=== PATIENT | male | born 1945 | race Caucasian/White ===

== ENCOUNTER 2020-03-01 14:05 | Inpatient (IN) | payer OTHER ==
[~2020-03-01] VITALS: Ht 185.4 cm; Wt 99.5 kg
[~2020-03-01 14:05] MED LIST: ALLOPURINOL300 MG PO; AMLODIPINE5 MG PO; ASPIRIN81 M1 PO; CLINDAMYCIN150 MG PO; CRESTOR20 M1 PO; DARVOCET N 1001 TAB PO; DOXAZOSIN2 MG PO; DOXAZOSIN4 MG PO; FISH OIL DR 1,1 EACH PO; FOLIC ACID0.8 MG PO; HYDROCHLOROTHIA25 M1 PO; IMDUR60 MG PO; LEVOFLOXACIN500 MG PO; LISINOPRIL40 MG PO; METOPROLOL SR50 MG PO; METOPROLOL TART50 M1 PO; MUCOMIST 26 GM/30 ML PO; NAPROSYN EC375 MG PO; NAPROSYN375 MG PO; NORCO 10-325 T1 EACH PO; Oxycodone/Apap1 TA1 PO; PLAVIX75 M1 PO; PLAVIX75 MG PO; PRILOSEC10 MG PO; ROBITUSSIN AC 110 ML PO; VICODIN 5/500 505 MG PO; VITAMIN D32000 UNIT PO; VYTORIN 10 MG-21 TA1 PO; VYTORIN PO
[2020-03-01 15:04] VITALS: BP 196/84
[2020-03-01 15:31] LABS: BASO # 0.1 10*3/uL (0.0-0.1); BASO % 0.7 % (0.0-1.0); EOS # 0.3 10*3/uL (0.0-0.4); EOS % 3.3 % (1.0-4.0); HEMATOCRIT 46.7 % (42.0-52.0); LYMPH # 1.1 10*3/uL (1.3-4.4); MEAN CELL VOLUME 91.2 fl (80.0-94.0); MEAN CORPUSCULAR HGB 28.7 pg (27.0-31.0); MEAN CORPUSCULAR HGB CONC 31.5 g/dl (33.0-37.0); MONO # 0.7 10*3/uL (0.1-1.0); MONO % 8.7 % (3.0-9.0); NEUT # 5.4 10*3/uL (2.3-7.9); NEUT % 71.9 % (47.0-73.0); PLATELET COUNT AUTOMATED 208 10*3/uL (130-400); RED BLOOD COUNT 5.12 10*6/uL (4.50-5.90); RED CELL DISTRI WIDTH 13.2 % (0-14.5); WHITE BLOOD COUNT 7.5 10*3/uL (4.8-10.8)
[2020-03-01 15:58] LABS: ALBUMIN 3.4 gm/dl (3.1-4.5); CREATININE 1.48 mg/dL (0.70-1.30); POTASSIUM 4.2 mmol/L (3.5-5.1); TOTAL PROTEIN 7.5 gm/dL (6.4-8.2)
[2020-03-01 16:00] LABS: TROPONIN I 0.064 ng/ml (<0.045)
--- NOTE | 2020-03-01 18:45 | NUR ---
REPORT GIVEN TO LINH KAMARA. PATIENT TAKEN TO FLOOR BY MARS KAMARA.
[2020-03-01 19:00] VITALS: BP 172/65
--- NOTE | 2020-03-01 19:00 | NUR ---
Time: 1899 A 75 year old MALE admitted to 5E under services of JOSIE TATE DO. Pt. arrived via stretcher from ER. Chief complaint: SENT FROM [facility] FOR LLE WOUND. MAKENZIE BENNETT
--- NOTE | 2020-03-01 20:58 | NUR ---
STATES TO CALL [place] FOR MED LIST. PT SEES [facility].
[2020-03-02] VITALS (7 sets, daily range): BP systolic 154–224; BP diastolic 50–82
--- NOTE | 2020-03-02 00:06 | NUR ---
DR FIELD NOTIFIED OF PT BP 170/78
[2020-03-02 06:42] LABS: BASO % 0.5 % (0.0-1.0); EOS # 0.3 10*3/uL (0.0-0.4); EOS % 3.7 % (1.0-4.0); HEMATOCRIT 44.1 % (42.0-52.0); LYMPH # 1.1 10*3/uL (1.3-4.4); LYMPH % 14.4 % (27.0-41.0); MEAN CELL VOLUME 90.6 fl (80.0-94.0); MEAN CORPUSCULAR HGB 29.6 pg (27.0-31.0); MEAN CORPUSCULAR HGB CONC 32.7 g/dl (33.0-37.0); MEAN PLATELET VOLUME 10.3 fl (9.6-12.3); MONO # 0.8 10*3/uL (0.1-1.0); MONO % 10.2 % (3.0-9.0); NEUT # 5.4 10*3/uL (2.3-7.9); NEUT % 70.8 % (47.0-73.0); PLATELET COUNT AUTOMATED 181 10*3/uL (130-400); RED BLOOD COUNT 4.87 10*6/uL (4.50-5.90); RED CELL DISTRI WIDTH 13.2 % (0-14.5); WHITE BLOOD COUNT 7.7 10*3/uL (4.8-10.8)
--- NOTE | 2020-03-02 06:58 | NUR ---
PODIATRY RESIDENT NOTIFIED OF NEW CONSULT STATES SHE WILL SEE PT LATER TODAY NEW IMAGING ORDERS REC'D.
[2020-03-02 07:10] LABS: ALBUMIN 3.1 gm/dl (3.1-4.5); CREATININE 1.41 mg/dL (0.70-1.30); POTASSIUM 3.8 mmol/L (3.5-5.1)
[2020-03-02 07:18] LABS: FREE T4 1.15 ng/dl (0.76-1.46); THYROID STIM HORMONE (HS) 1.88 uIU/ml (0.358-4.75); TOTAL PROTEIN 6.9 gm/dL (6.4-8.2)
[2020-03-02 07:31] LABS: VITAMIN D, 25-HYDROXY 34.5 ng/mL (30-100)
--- NOTE | 2020-03-02 08:00 | NUR ---
Neurological: awake,alert,oriented Respiratory: easy, regular,no distress Breath sounds: clear Cough: none Cardiovascular: no problem Gastrointestinal: soft Genito/Urinary: no problem Musculoskeketal: amputee (lower extremity) MARS ARREOLA
--- NOTE | 2020-03-02 09:09 | NUR ---
This nurse went to evaluate patient for skin impairments at this time patient is off the floor for testing at this time. This nurse made Jodie KAMARA the nurse caring for patient aware to notify this nurse upon patient's return to the floor.
--- NOTE | 2020-03-02 11:47 | NUR ---
This nurse along with Jodie KAMARA went to evaluate patient for skin impairments. Patients states that podiatry was just in and changed his dressings and he doesn't want these dressings removed at this time.
--- NOTE | 2020-03-02 12:03 | NUR ---
Mobility Developer in to talk to patient. Patient states lives at HOME with . There are 10 steps in the home. Physician: GOES TO [place] [facility]: [facility] Home health services: [facility] 2 HURS A DAY 7 DAYS A WEEK Patient's level of ADLs: MINIMAL ASSIST Patient has working utilities: YES DME: MOTORIZED WHEELCHAIR Follow-up physician's appointment after d/c: WILL BE MADE BY HOSPITALIST NURSE DIRECTOR ON DISCHARGE Does patient want to access PORTAL?: NO Discharge plan PT LIVES AT HOME WITH . PT HAS A MOTORIZED WHEELCHAIR. STATES HE HAS [facility]WAYS [facility] 2 HOURS A DAY 7 DAYS A WEEK. DENIES ANY OTHER NEEDS AT HOME AT THIS TIME. WILL CONITNUE TO FOLLOW. STATES HE WILL HAVE A RIDE HOME ON DISCHARGE.. HOWIE COLLIER
--- NOTE | 2020-03-02 14:25 | NUR ---
PHYSICAL THERAPY Attempted to see pt earlier in Am awaiting aterial ultrasound result. Spoke with nurse Annetta study showing thrombus areas of LLE and currently off the floor for CT pelvis and has LLE foot and Tib/Fib xrays pending. Will follow pending MD assessment reg thrombus and LLE xray results and medically appropriate. Denisa Allison PT
--- NOTE | 2020-03-02 14:25 | NUR ---
Patient had an ultrasound this am. OT waiting result in the am. Currently, nursing reports that testing shows thrombus in areas of LLE. Patient is not out of his room getting a CT scan with x-rays pending for LLE. OTR will attempt at a later date after further orders from . Thank you. Bertha Faria OTR/Driss
--- NOTE | 2020-03-02 16:45 | NUR ---
NOTIFIED DR SHELL OF CONSULT. RECEIVED ORDER FOR HEPARIN DRIP. STAT APTT ORDERED WAITING RESULT.
--- NOTE | 2020-03-02 19:00 | NUR ---
NOTIFIED HOSPITALIST OF HIGH BP. RECEIVED N.O TO RESUME HOME MEDS VERIFIED WITH [facility] AND . ONE TIME DOSE OF LABETATOL. Q 1 HR BP.
--- NOTE | 2020-03-02 19:50 | NUR ---
CHECKED IV HEPARIN DRIP INFUSING AT 39.2ML/HR IV TURNED OFF INFUSION RATE SHOULD HAVE BEEN 17.9ML/HR WEIGHT WHEN PROGRAMMED WAS IN POUNDS NOT KILOGRAMS. IV started right forearm with #22 angiocath after 1ST attempts. The IV site was prepped with Chloraprep. Heparin lock attached. Sterile dressing applied. Patient tolerated precedure well. Procedure performed according to [facility] policy & procedure. IV ANTIBIOTIC STARTED AFTER 2ND IV SITE STARTED. NARINDER LOVE J
--- NOTE | 2020-03-02 20:45 | NUR ---
CALLED PHARMACY AND NOTIFIED THEM OF HERPARIN AND RECOMMENDATION WAS TO STOP INFUSION FOR COUPLE HOURS THEN RESTART AT CORRECT RATE AND DO PTT 6 HOURS AFTER RESTART IV INFUSION PER PHARMACIST.
--- NOTE | 2020-03-02 20:57 | NUR ---
SPOKE WITH DR. LOVE AFTER SECOND ATTEMPT AT CONTACTING RESIDENT AND NOTIFIED HIM OF WHAT HAPPEND AND OF THE RECOMMENDATION OF PHARAMCIST. PER DR. LOVE THIS IS OKAY.
--- NOTE | 2020-03-02 22:50 | NUR ---
24 HR chart check completed.
--- NOTE | 2020-03-02 23:49 | NUR ---
CALLED DR. LOVE AND NOTIFIED HIM THAT PATIENT HAD AN ORDER FOR Q1H BP AND BP HAVE BEEN SYSTOLIC 150'S OVER 60'S-70'S DIASTOLIC. DR. LOVE D/C ORDER TO DO BP PROTOCOL.
[2020-03-03] VITALS: BP 157/66
[2020-03-03 04:12] LABS: BASO # 0.1 10*3/uL (0.0-0.1); BASO % 0.8 % (0.0-1.0); EOS # 0.3 10*3/uL (0.0-0.4); EOS % 4.3 % (1.0-4.0); HEMATOCRIT 44.3 % (42.0-52.0); LYMPH # 1.3 10*3/uL (1.3-4.4); MEAN CELL VOLUME 89.5 fl (80.0-94.0); MEAN CORPUSCULAR HGB 28.9 pg (27.0-31.0); MEAN CORPUSCULAR HGB CONC 32.3 g/dl (33.0-37.0); MEAN PLATELET VOLUME 9.5 fl (9.6-12.3); MONO # 0.8 10*3/uL (0.1-1.0); MONO % 10.2 % (3.0-9.0); NEUT % 67.3 % (47.0-73.0); PLATELET COUNT AUTOMATED 183 10*3/uL (130-400); RED BLOOD COUNT 4.95 10*6/uL (4.50-5.90); RED CELL DISTRI WIDTH 13.2 % (0-14.5); WHITE BLOOD COUNT 7.5 10*3/uL (4.8-10.8)
[2020-03-03 04:26] LABS: CREATININE 1.51 mg/dL (0.70-1.30); POTASSIUM 3.6 mmol/L (3.5-5.1); TOTAL PROTEIN 6.7 gm/dL (6.4-8.2)
--- NOTE | 2020-03-03 04:38 | NUR ---
NOTIFIED DR. ELDRIDGE OF CRITICAL PTT AND FOLLOWING HEPARIN PROTOCOL OF HOLDING HEPARIN FOR 1 HOUR AND REDUCING BY 3 UNITS TO MAKE 15 UNITS/KG/HR FROM 18 UNITS/KG/HR, THEN GETTING PTT 6HRS AFTER RESTARTING. DR. ELDRIDGE AGREED.
[2020-03-03 08:00] VITALS: BP 148/90
--- NOTE | 2020-03-03 08:00 | NUR ---
Neurological: awake,alert,oriented Respiratory: diminished bilaterally Breath sounds: clear Cough: none Cardiovascular: no problem Gastrointestinal: soft Genito/Urinary: incontinent Musculoskeketal: amputee (lower extremity) NO S/S OF BLEEDING. HEPARIN DRIP INFUSING WITHOUT DIFFICULTY. MARS ARREOLA
--- NOTE | 2020-03-03 11:00 | NUR ---
PHYSICAL THERAPY PT EVAL COMPLETED TODAY ON LEVEL 5: FULL EVAL TO FOLLOW. RECOMMEND PT WHILE HERE TO ADDRESS STRENGTH AND TRANSFERS. PT EVAL IS MODERATE COMPLEXITY: [id number]. HE LIVES AT HOME WITH WITH [facility] 2 HOURS A DAY AND 7 DAYS A WEEK AND D/C PLAN IS TO RETURN THERE. THANK YOU FOR REFERRAL PAYAL MARTIN PT
[2020-03-03 12:00] VITALS: BP 156/80
--- NOTE | 2020-03-03 12:23 | NUR ---
APTT 89.4 PER HEPARIN PROTOCOL TURNED OFF FOR 1 HR. THEN DECREASE BY 3. REPEAT APTT AT 1620. NO S/S OF BLEEDING NOTED.
--- NOTE | 2020-03-03 14:00 | NUR ---
ASKED THIS NURSE TO CALL AND SEE WHEN HE WAS COMING TO SEE THIS PATIENT. THIS NURSE SPOKE TO DR. SHELL AND HE STATED HE WILL BE IN ON THURSDAY. CALL AND NOTIFIED
[2020-03-03 16:00] VITALS: BP 165/55
[2020-03-03 20:00] VITALS: BP 195/70
[2020-03-03 21:00] VITALS: BP 170/68
[2020-03-04] VITALS: BP 168/65
--- NOTE | 2020-03-04 02:59 | NUR ---
AWAKE ALERT. VOIDED 200CC [place] COLORED URINE.
[2020-03-04 08:00] VITALS: BP 190/76; BP 203/52
[2020-03-04 12:00] VITALS: BP 174/80; BP 180/54
--- NOTE | 2020-03-04 13:20 | NUR ---
IN ROOM TO SEE PATIENT. DRESSING CHANGED AT THIS TIME. PATIENT TOLERATED WELL. DISCUSSED TRANSFER TO [place] TOMORROW.
[2020-03-04] MEDS ORDERED: AMLODIPINE BESYL5 MG PO (13:36)
[2020-03-04 16:00] VITALS: BP 154/46
--- NOTE | 2020-03-04 19:39 | NUR ---
SPOKE WITH DR BRENNAN REGARDING DISCHARGE ORDER
[2020-03-04 20:00] VITALS: BP 175/58
--- NOTE | 2020-03-04 20:05 | NUR ---
PATIENT RESTING IN BED WITH NO NEEDS MADE. ASSISTED WITH PHONE TO CALL . FLUIDS INFUSING PER ORDER. BED ALARM ON, BED IN LOW POSITION, CALL LIGHT IN REACH
--- NOTE | 2020-03-04 21:04 | NUR ---
DR BRENNAN AWARE OF BLOOD PRESSURE AND HEART RATE. ORDER TAKEN TO GIVE 50 OF LOPRESSOR TONIGHT INSTEAD OF 75
[2020-03-05] VITALS: BP 175/59
--- NOTE | 2020-03-05 02:55 | NUR ---
24 HR chart check completed.
--- NOTE | 2020-03-05 04:30 | NUR ---
PATIENT REFUSING DISCHARGE WOUND PHOTOS AT THIS TIME OF MORNING.
--- NOTE | 2020-03-05 05:24 | NUR ---
PATIENT TAKEN WITH [facility] FOR TRANSFER TO [facility]. BELONGINGS SENT WITH PATIENT. PATIENT ALERT AND ORIENTED
--- NOTE | 2020-03-05 05:49 | NUR ---
REPORT GIVEN TO MATILDE AT [facility] DES[facility]. SHE REQUESTS HOME MED REC BE FAXED TO [phone]
--- NOTE | 2020-03-06 07:42 | NUR ---
PHYSICAL THERAPY CO-SIGN I approve of the Physical Therapy notes written above. Denisa Allison PT
== END 2020-03-05 06:33 | disposition short-term general hospital (02) | DRG 603 ==
LOC: ED 14:05 → 5E 17:27 → EDHOLD 17:27 → 5E 18:25
PROVIDERS: Emergency Medicine; Internal Medicine; ADMIT Internal Medicine; ATTEND Internal Medicine
DX: L03.116 Cellulitis of left lower limb (principal); E44.0 Moderate protein-calorie malnutrition; L97.929 Non-pressure chronic ulcer of unspecified part of left lower leg with unspecified severity; R73.9 Hyperglycemia, unspecified; N40.0 Benign prostatic hyperplasia without lower urinary tract symptoms; I70.202 Unspecified atherosclerosis of native arteries of extremities, left leg; I25.10 Atherosclerotic heart disease of native coronary artery without angina pectoris; I12.9 Hypertensive chronic kidney disease with stage 1 through stage 4 chronic kidney disease, or unspecified chronic kidney disease; N18.31 Chronic kidney disease, stage 3a; Z89.611 Acquired absence of right leg above knee; Z95.1 Presence of aortocoronary bypass graft; Z95.0 Presence of cardiac pacemaker; Z82.49 Family history of ischemic heart disease and other diseases of the circulatory system; Z80.3 Family history of malignant neoplasm of breast; Z83.3 Family history of diabetes mellitus; Z80.0 Family history of malignant neoplasm of digestive organs; Z89.422 Acquired absence of other left toe(s); Z79.899 Other long term (current) drug therapy; Z79.82 Long term (current) use of aspirin; Z79.02 Long term (current) use of antithrombotics/antiplatelets; Z68.28 Body mass index [BMI] 28.0-28.9, adult

== ENCOUNTER 2021-12-11 16:01 | Emergency (ER) | payer OTHER ==
[~2021-12-11 16:01] MED LIST changes: +AMLODIPINE BESYL5 MG PO
[2021-12-11 16:58] LABS: BASO % 0.6 % (0.0-1.0); EOS # 0.1 10*3/uL (0.0-0.4); EOS % 1.4 % (1.0-4.0); HEMATOCRIT 43.8 % (42.0-52.0); LYMPH # 0.9 10*3/uL (1.3-4.4); LYMPH % 12.9 % (27.0-41.0); MEAN CELL VOLUME 88.8 fl (80.0-94.0); MEAN CORPUSCULAR HGB 29.2 pg (27.0-31.0); MEAN CORPUSCULAR HGB CONC 32.9 g/dl (33.0-37.0); MEAN PLATELET VOLUME 9.6 fl (9.6-12.3); MONO # 0.6 10*3/uL (0.1-1.0); NEUT # 5.4 10*3/uL (2.3-7.9); NEUT % 75.8 % (47.0-73.0); PLATELET COUNT AUTOMATED 200 10*3/uL (130-400); RED BLOOD COUNT 4.93 10*6/uL (4.50-5.90); RED CELL DISTRI WIDTH 13.2 % (0-14.5); WHITE BLOOD COUNT 7.1 10*3/uL (4.8-10.8)
[2021-12-11 17:14] LABS: CREATININE 1.42 mg/dL (0.70-1.30); POTASSIUM 3.5 mmol/L (3.5-5.1); TOTAL PROTEIN 6.6 gm/dL (6.4-8.2)
[2021-12-11 19:10] VITALS: BP 142/78
[2021-12-11 19:13] LABS: BILIRUBIN Negative (Negative); BLOOD Negative (Negative); CLARITY Clear (Clear); COLOR Dark Yellow (Yellow); GLUCOSE Negative (Negative); KETONE Trace (Negative); LEUKO ESTERASE Negative (Negative); NITRITE Negative (Negative)
[2021-12-11 19:41] LABS: BACTERIA 1+; EPITHELIAL CELLS 0-2; WBC 0-2 wbc/hpf (0-5)
== END 2021-12-11 20:31 | disposition home or self-care (01) ==
LOC: ED 16:01
PROVIDERS: Physician Assistant
DX: R10.12 Left upper quadrant pain (principal); Z98.890 Other specified postprocedural states; Z79.899 Other long term (current) drug therapy; Z79.82 Long term (current) use of aspirin

== ENCOUNTER 2022-02-05 14:05 | Inpatient (IN) | payer OTHER ==
[~2022-02-05] VITALS: Ht 185.4 cm; Wt 81.2 kg
[2022-02-05 14:10] VITALS: BP 129/52
[2022-02-05 14:44] LABS: BASO # 0.1 10*3/uL (0.0-0.1); BASO % 0.9 % (0.0-1.0); EOS # 0.2 10*3/uL (0.0-0.4); EOS % 2.3 % (1.0-4.0); HEMATOCRIT 39.8 % (42.0-52.0); LYMPH # 1.6 10*3/uL (1.3-4.4); LYMPH % 24.3 % (27.0-41.0); MEAN CELL VOLUME 90.9 fl (80.0-94.0); MEAN CORPUSCULAR HGB 29.7 pg (27.0-31.0); MEAN CORPUSCULAR HGB CONC 32.7 g/dl (33.0-37.0); MEAN PLATELET VOLUME 9.8 fl (9.6-12.3); MONO # 0.7 10*3/uL (0.1-1.0); MONO % 10.1 % (3.0-9.0); NEUT % 61.8 % (47.0-73.0); PLATELET COUNT AUTOMATED 216 10*3/uL (130-400); RED BLOOD COUNT 4.38 10*6/uL (4.50-5.90); WHITE BLOOD COUNT 6.5 10*3/uL (4.8-10.8)
[2022-02-05 14:56] LABS: ACT PARTIAL THROMBO TIME 28.8 SECONDS (20.0-32.1); INTERNATIONAL NORM RATIO 1.1 (2.0-3.5)
[2022-02-05 15:03] LABS: BUN 10 mg/dl (7-24); CHLORIDE 110 mmol/L (98-107); CREATININE 1.29 mg/dL (0.70-1.30); LIPASE 45 U/L (73-393); POTASSIUM 3.9 mmol/L (3.5-5.1); SGOT/AST 17 IU/L (3-35); SGPT/ALT 19 U/L (12-78); SODIUM 143 mmol/L (136-145); TOTAL PROTEIN 6.2 gm/dL (6.4-8.2)
[2022-02-05 15:04] LABS: ALKALINE PHOSPHATASE 126 U/L (45-117)
[2022-02-05 16:48] VITALS: BP 172/71
[2022-02-05 18:00] VITALS: BP 154/67
[2022-02-05 20:40] VITALS: BP 156/58
[2022-02-05 22:01] LABS: BILIRUBIN Negative (Negative); BLOOD Negative (Negative); CLARITY Clear (Clear); COLOR Yellow (Yellow); GLUCOSE Negative (Negative); KETONE Negative (Negative); LEUKO ESTERASE Negative (Negative); NITRITE Negative (Negative); UROBILINOGEN 0.2 E.U./dl (0.0-1.0)
[2022-02-05 22:12] LABS: BACTERIA TRACE
[2022-02-05 23:48] VITALS: BP 151/71
[2022-02-06 00:40] VITALS: BP 170/82
[2022-02-06 04:53] VITALS: BP 156/66
[2022-02-06 06:07] LABS: ALKALINE PHOSPHATASE 118 U/L (45-117); BUN 11 mg/dl (7-24); CHLORIDE 107 mmol/L (98-107); CHOLESTEROL 113 mg/dL (<200); CREATININE 1.22 mg/dL (0.70-1.30); FREE T4 1.13 ng/dl (0.76-1.46); LDL CHOLESTEROL 47 mg/dL (9-159); POTASSIUM 3.1 mmol/L (3.5-5.1); SGOT/AST 15 IU/L (3-35); SGPT/ALT 18 U/L (12-78); SODIUM 145 mmol/L (136-145); TOTAL PROTEIN 6.4 gm/dL (6.4-8.2); TRIGLYCERIDES 212 mg/dl (<150)
[2022-02-06 06:09] LABS: BASO # 0.1 10*3/uL (0.0-0.1); BASO % 0.9 % (0.0-1.0); EOS # 0.2 10*3/uL (0.0-0.4); EOS % 2.9 % (1.0-4.0); LYMPH # 1.6 10*3/uL (1.3-4.4); LYMPH % 24.4 % (27.0-41.0); MEAN CELL VOLUME 91.1 fl (80.0-94.0); MEAN CORPUSCULAR HGB 29.6 pg (27.0-31.0); MEAN CORPUSCULAR HGB CONC 32.4 g/dl (33.0-37.0); MEAN PLATELET VOLUME 10.5 fl (9.6-12.3); MONO # 0.6 10*3/uL (0.1-1.0); MONO % 9.1 % (3.0-9.0); NEUT # 4.1 10*3/uL (2.3-7.9); NEUT % 61.9 % (47.0-73.0); PLATELET COUNT AUTOMATED 204 10*3/uL (130-400); RED CELL DISTRI WIDTH 13.1 % (0-14.5); WHITE BLOOD COUNT 6.6 10*3/uL (4.8-10.8)
[2022-02-06 07:48] LABS: VITAMIN D, 25-HYDROXY 61.1 ng/mL (30-100)
[2022-02-06 08:00] VITALS: BP 156/69
[2022-02-06] MEDS ORDERED: POTASSIUM CHLO20 ME4 PO (09:53)
[2022-02-06] MEDS ORDERED: PANTOPRAZOLE SO40 MG PO (09:54)
[2022-02-06] MEDS ORDERED: FLOMAX0.4 MG PO (09:54)
[2022-02-06] MEDS ORDERED: B12 ACTIVE1000 MCG PO (09:55)
[2022-02-06] MEDS ORDERED: LASIX20 MG PO (09:55)
[2022-02-06] MEDS ORDERED: LOPRESSOR25 MG PO (09:56)
[2022-02-06 12:00] VITALS: BP 153/85
[2022-02-06] MEDS ORDERED: GLIPIZIDE10 M2 PO (14:31)
[2022-02-06] MEDS ORDERED: EUCERIN, DERMA120 GM PO (14:36)
[2022-02-06 16:00] VITALS: BP 163/60
[2022-02-06 20:00] VITALS: BP 150/69
[2022-02-07] VITALS: BP 147/67
[2022-02-07 06:04] LABS: BUN 13 mg/dl (7-24); CHLORIDE 104 mmol/L (98-107); CREATININE 1.24 mg/dL (0.70-1.30); POTASSIUM 3.4 mmol/L (3.5-5.1); SODIUM 141 mmol/L (136-145)
[2022-02-07 06:25] LABS: BASO % 0.6 % (0.0-1.0); EOS # 0.2 10*3/uL (0.0-0.4); EOS % 3.1 % (1.0-4.0); HEMATOCRIT 43.2 % (42.0-52.0); LYMPH # 1.4 10*3/uL (1.3-4.4); LYMPH % 21.1 % (27.0-41.0); MEAN CELL VOLUME 91.9 fl (80.0-94.0); MEAN CORPUSCULAR HGB 29.8 pg (27.0-31.0); MEAN CORPUSCULAR HGB CONC 32.4 g/dl (33.0-37.0); MEAN PLATELET VOLUME 10.4 fl (9.6-12.3); MONO # 0.6 10*3/uL (0.1-1.0); MONO % 8.1 % (3.0-9.0); NEUT # 4.5 10*3/uL (2.3-7.9); NEUT % 66.5 % (47.0-73.0); PLATELET COUNT AUTOMATED 237 10*3/uL (130-400); RED CELL DISTRI WIDTH 12.8 % (0-14.5); WHITE BLOOD COUNT 6.8 10*3/uL (4.8-10.8)
[2022-02-07 08:00] VITALS: BP 142/52
[2022-02-07] MEDS ORDERED: LASIX40 MG PO (10:22)
[2022-02-07 12:00] VITALS: BP 137/68
== END 2022-02-07 16:35 | disposition home or self-care (01) | DRG 291 ==
LOC: ED 14:05 → 4E 16:38 → EDHOLD 16:38 → 4E 21:56
PROVIDERS: Emergency Medicine; Internal Medicine; Student in an Organized Health Care Education/Training Program; ADMIT Internal Medicine; ATTEND Internal Medicine
DX: I13.0 Hypertensive heart and chronic kidney disease with heart failure and stage 1 through stage 4 chronic kidney disease, or unspecified chronic kidney disease (principal); E43 Unspecified severe protein-calorie malnutrition; I50.31 Acute diastolic (congestive) heart failure; I25.810 Atherosclerosis of coronary artery bypass graft(s) without angina pectoris; N18.30 Chronic kidney disease, stage 3 unspecified; N40.0 Benign prostatic hyperplasia without lower urinary tract symptoms; E78.00 Pure hypercholesterolemia, unspecified; I73.9 Peripheral vascular disease, unspecified; D64.9 Anemia, unspecified; E87.8 Other disorders of electrolyte and fluid balance, not elsewhere classified; E83.42 Hypomagnesemia; E87.6 Hypokalemia; S51.812A Laceration without foreign body of left forearm, initial encounter; S81.012A Laceration without foreign body, left knee, initial encounter; L89.621 Pressure ulcer of left heel, stage 1; X58.XXXA Exposure to other specified factors, initial encounter; Z89.619 Acquired absence of unspecified leg above knee; Z80.0 Family history of malignant neoplasm of digestive organs; Z83.3 Family history of diabetes mellitus; Z80.3 Family history of malignant neoplasm of breast; Z95.0 Presence of cardiac pacemaker; Y93.89 Activity, other specified; Y92.89 Other specified places as the place of occurrence of the external cause; Y99.8 Other external cause status; Z68.23 Body mass index [BMI] 23.0-23.9, adult

== ENCOUNTER 2022-11-30 16:12 | Emergency (ER) | payer OTHER ==
[~2022-11-30] VITALS: Ht 182.8 cm; Wt 81.6 kg
[~2022-11-30 16:12] MED LIST changes: +B12 ACTIVE1000 MCG PO; +EUCERIN, DERMA120 GM PO; +FLOMAX0.4 MG PO; +GLIPIZIDE10 M2 PO; +LASIX20 MG PO; +LASIX40 MG PO; +LOPRESSOR25 MG PO; +PANTOPRAZOLE SO40 MG PO; +POTASSIUM CHLO20 ME4 PO
[2022-11-30] MEDS ORDERED: CEPHALEXIN500 M1 PO (16:49)
[2022-11-30 16:50] VITALS: BP 132/68
== END 2022-11-30 17:48 | disposition home or self-care (01) ==
LOC: ED 16:12
DX: S31.31XA Laceration without foreign body of scrotum and testes, initial encounter (principal); I25.10 Atherosclerotic heart disease of native coronary artery without angina pectoris; I10 Essential (primary) hypertension; F32.A Depression, unspecified; K21.9 Gastro-esophageal reflux disease without esophagitis; M10.9 Gout, unspecified; I48.91 Unspecified atrial fibrillation; Z98.890 Other specified postprocedural states; X58.XXXA Exposure to other specified factors, initial encounter; Y93.89 Activity, other specified; Y92.89 Other specified places as the place of occurrence of the external cause; Y99.8 Other external cause status

== ENCOUNTER 2023-01-21 18:06 | Inpatient (IN) | payer OTHER ==
[~2023-01-21] VITALS: Ht 182.8 cm; Wt 85.8 kg
[2023-01-21 18:06] VITALS: BP 167/53
[~2023-01-21 18:06] MED LIST changes: +CEPHALEXIN500 M1 PO
[2023-01-21 19:43] LABS: BASO % 0.6 % (0.0-1.0); EOS # 0.2 10*3/uL (0.0-0.4); EOS % 2.6 % (1.0-4.0); HEMATOCRIT 42.7 % (42.0-52.0); LYMPH # 1.3 10*3/uL (1.3-4.4); LYMPH % 20.2 % (27.0-41.0); MEAN CORPUSCULAR HGB 30.4 pg (27.0-31.0); MONO # 0.7 10*3/uL (0.1-1.0); MONO % 10.8 % (3.0-9.0); NEUT # 4.3 10*3/uL (2.3-7.9); NEUT % 65.3 % (47.0-73.0); PLATELET COUNT AUTOMATED 202 10*3/uL (130-400); RED BLOOD COUNT 4.64 10*6/uL (4.50-5.90); RED CELL DISTRI WIDTH 13.4 % (0-14.5); WHITE BLOOD COUNT 6.6 10*3/uL (4.8-10.8)
[2023-01-21 20:00] VITALS: BP 153/57
[2023-01-21 20:12] LABS: ALKALINE PHOSPHATASE 81 U/L (46-116); BUN 10 mg/dl (9-23); CHLORIDE 107 mmol/L (98-107); INTERNATIONAL NORM RATIO 1.1 (2.0-3.5); LIPASE 20 U/L (12-53); SGPT/ALT 14 U/L (10-49); TOTAL PROTEIN 6.3 gm/dL (6.0-8.0)
[2023-01-22] VITALS: BP 156/53
[2023-01-22 04:00] VITALS: BP 157/57
[2023-01-22 08:33] LABS: BASO % 0.7 % (0.0-1.0); EOS # 0.2 10*3/uL (0.0-0.4); EOS % 3.9 % (1.0-4.0); HEMATOCRIT 44.1 % (42.0-52.0); LYMPH # 1.2 10*3/uL (1.3-4.4); LYMPH % 19.2 % (27.0-41.0); MEAN CELL VOLUME 93.2 fl (80.0-94.0); MEAN CORPUSCULAR HGB 30.2 pg (27.0-31.0); MEAN CORPUSCULAR HGB CONC 32.4 g/dl (33.0-37.0); MONO # 0.6 10*3/uL (0.1-1.0); NEUT # 4.1 10*3/uL (2.3-7.9); NEUT % 66.7 % (47.0-73.0); PLATELET COUNT AUTOMATED 179 10*3/uL (130-400); RED BLOOD COUNT 4.73 10*6/uL (4.50-5.90); RED CELL DISTRI WIDTH 13.2 % (0-14.5); WHITE BLOOD COUNT 6.1 10*3/uL (4.8-10.8)
[2023-01-22 09:04] LABS: BUN 9 mg/dl (9-23); CHLORIDE 109 mmol/L (98-107); CHOLESTEROL 147 mg/dL (<200); FREE T4 0.89 ng/dl (0.89-1.76); LDL CHOLESTEROL 77 mg/dL (9-159); POTASSIUM 3.4 mmol/L (3.4-5.1); TRIGLYCERIDES 199 mg/dl (<150)
[2023-01-22 09:10] LABS: VITAMIN D, 25-HYDROXY 52.4 ng/mL (30-100)
[2023-01-22 15:18] VITALS: BP 152/60
[2023-01-22] MEDS ORDERED: VITAMIN B121000 MC1 PO (17:58)
[2023-01-22] MEDS ORDERED: VITAMIN D350 MCG PO (17:59)
[2023-01-22 19:22] VITALS: BP 175/67
[2023-01-22 21:45] VITALS: BP 196/76
[2023-01-23] VITALS: BP 178/66
[2023-01-23 00:45] VITALS: BP 178/66
[2023-01-23 04:00] VITALS: BP 168/54
[2023-01-23 07:21] LABS: BASO # 0.1 10*3/uL (0.0-0.1); BASO % 0.7 % (0.0-1.0); EOS # 0.2 10*3/uL (0.0-0.4); EOS % 3.5 % (1.0-4.0); HEMATOCRIT 45.9 % (42.0-52.0); LYMPH # 1.2 10*3/uL (1.3-4.4); MEAN CELL VOLUME 91.6 fl (80.0-94.0); MEAN CORPUSCULAR HGB 30.3 pg (27.0-31.0); MEAN CORPUSCULAR HGB CONC 33.1 g/dl (33.0-37.0); MONO # 0.7 10*3/uL (0.1-1.0); NEUT # 4.7 10*3/uL (2.3-7.9); NEUT % 68.4 % (47.0-73.0); PLATELET COUNT AUTOMATED 186 10*3/uL (130-400); RED BLOOD COUNT 5.01 10*6/uL (4.50-5.90); RED CELL DISTRI WIDTH 13.4 % (0-14.5); WHITE BLOOD COUNT 6.9 10*3/uL (4.8-10.8)
[2023-01-23 07:56] LABS: BUN 9 mg/dl (9-23); CHLORIDE 107 mmol/L (98-107); POTASSIUM 3.3 mmol/L (3.4-5.1)
[2023-01-23 08:00] VITALS: BP 174/78
[2023-01-23] MEDS ORDERED: ZESTRIL,PRINIVIL5 MG PO (09:42)
== END 2023-01-23 11:33 | disposition home or self-care (01) | DRG 291 ==
LOC: ED 18:06 → EDHOLD 22:16 → 5E 01-22 19:23
PROVIDERS: Family Medicine; Physician Assistant; Student in an Organized Health Care Education/Training Program; ADMIT Internal Medicine; ATTEND Internal Medicine
DX: I13.0 Hypertensive heart and chronic kidney disease with heart failure and stage 1 through stage 4 chronic kidney disease, or unspecified chronic kidney disease (principal); I50.31 Acute diastolic (congestive) heart failure; E44.0 Moderate protein-calorie malnutrition; I24.8 Other forms of acute ischemic heart disease; E78.5 Hyperlipidemia, unspecified; I25.10 Atherosclerotic heart disease of native coronary artery without angina pectoris; N40.0 Benign prostatic hyperplasia without lower urinary tract symptoms; N18.30 Chronic kidney disease, stage 3 unspecified; E78.00 Pure hypercholesterolemia, unspecified; I73.9 Peripheral vascular disease, unspecified; E87.6 Hypokalemia; R73.9 Hyperglycemia, unspecified; E83.42 Hypomagnesemia; S81.802A Unspecified open wound, left lower leg, initial encounter; X58.XXXA Exposure to other specified factors, initial encounter; Y93.89 Activity, other specified; Z95.0 Presence of cardiac pacemaker; Z89.611 Acquired absence of right leg above knee; Z83.3 Family history of diabetes mellitus; Z80.0 Family history of malignant neoplasm of digestive organs; Z82.49 Family history of ischemic heart disease and other diseases of the circulatory system; Y92.89 Other specified places as the place of occurrence of the external cause; Y99.8 Other external cause status; Z68.25 Body mass index [BMI] 25.0-25.9, adult; Z66 Do not resuscitate

== ENCOUNTER 2023-06-18 15:05 | Inpatient (IN) | payer OTHER ==
[~2023-06-18] VITALS: Ht 182.8 cm; Wt 80.3 kg
[~2023-06-18 15:05] MED LIST changes: +VITAMIN B121000 MC1 PO; +VITAMIN D350 MCG PO; +ZESTRIL,PRINIVIL5 MG PO
[2023-06-18 15:06] VITALS: BP 103/44
[2023-06-18 15:58] LABS: HEMATOCRIT 40.6 % (42.0-52.0); MEAN CELL VOLUME 90.8 fl (80.0-94.0); MEAN CORPUSCULAR HGB 28.4 pg (27.0-31.0); MEAN CORPUSCULAR HGB CONC 31.3 g/dl (33.0-37.0); MEAN PLATELET VOLUME 10.4 fl (9.6-12.3); PLATELET COUNT AUTOMATED 311 10*3/uL (130-400); RED BLOOD COUNT 4.47 10*6/uL (4.50-5.90); RED CELL DISTRI WIDTH 12.9 % (0-14.5); WHITE BLOOD COUNT 31.2 10*3/uL (4.8-10.8)
[2023-06-18 16:00] LABS: MANUAL DIFF REFLEX YES
[2023-06-18 16:11] LABS: ACT PARTIAL THROMBO TIME 41.4 SECONDS (20.0-32.1)
[2023-06-18 16:22] LABS: POTASSIUM 3.7 mmol/L (3.4-5.1); TOTAL PROTEIN 6.2 gm/dL (6.0-8.0)
[2023-06-18 16:24] LABS: PLATELET SUFFICIENCY NORMAL (NORMAL); TOTAL CELLS COUNTED 100 #CELLS
[2023-06-18 16:25] LABS: BURR CELLS FEW; TOXIC GRANULATION SLIGHT
[2023-06-18] MEDS ORDERED: SODIUM CHLORIDE 0.9% 1,000 ML IV ONE (16:25)
[2023-06-18] MEDS ORDERED: Ceftriaxone Sodium 1 GM/10 ML SYR IV ONE (16:25)
[2023-06-18 16:26] LABS: POLYCHROMASIA SLIGHT
[2023-06-18 16:29] VITALS: BP 113/57
[2023-06-18] MEDS ORDERED: SODIUM CHLORIDE 0.9% 1,000 ML BAG IV ONE (16:35)
[2023-06-18 16:46] LABS: BILIRUBIN 1+ (Negative); BLOOD 2+ (Negative); CLARITY Turbid (Clear); COLOR Dark Yellow (Yellow); GLUCOSE Negative (Negative); KETONE Trace (Negative); LEUKO ESTERASE 2+ (Negative); NITRITE Negative (Negative)
[2023-06-18 16:59] LABS: BACTERIA 4+; WBC TNTC wbc/hpf (0-5)
[2023-06-18] MEDS ORDERED: Clopidogrel75 MG PO (17:00)
[2023-06-18] MEDS ORDERED: HYDR25T PO (17:01)
[2023-06-18] MEDS ORDERED: MIRTAZAPINE7.5 MG PO (17:03)
[2023-06-18] MEDS ORDERED: LOPRESSOR100 M1 PO (17:03)
[2023-06-18] MEDS ORDERED: RIVASTIGMINE TAR3 M1 PO (17:04)
[2023-06-18] MEDS ORDERED: POTASSIUM CHLO20 ME3 PO (17:04)
[2023-06-18 17:38] VITALS: BP 126/58
[2023-06-18] MEDS ORDERED: MAGNESIUM SULFATE 50 ML IV ONE (17:45)
[2023-06-18] MEDS ORDERED: HEPARIN SODIUM 250 ML IV SCH (17:45)
[2023-06-18] MEDS ORDERED: AZITHROMYCIN 250 ML IV ONE ×2 (18:55)
[2023-06-18 19:17] VITALS: BP 122/59
[2023-06-18 22:01] VITALS: BP 125/72
[2023-06-18 22:15] VITALS: BP 128/45
[2023-06-18] MEDS ORDERED: Magnesium Hydroxide 30 ML UDC PO PRN (22:20)
[2023-06-18] MEDS ORDERED: TEMAZEPAM 15 MG CAP PO PRN (22:20)
[2023-06-18] MEDS ORDERED: BISACODYL 5 MG TAB PO PRN (22:20)
[2023-06-18] MEDS ORDERED: BISACODYL 10 MG SUPP R PRN (22:20)
[2023-06-18] MEDS ORDERED: diphenhydrAMINE hydrochloride 50 MG/ML VIAL IV ONE ×2 (22:40→22:55)
[2023-06-18] MEDS ORDERED: Metoclopramide Hydrochloride 10 MG/2 ML AMP IV ONE (22:40)
[2023-06-19] VITALS (7 sets, daily range): BP systolic 94–140; BP diastolic 31–52
[2023-06-19] MEDS ORDERED: SODIUM CHLORIDE 0.9% 1,000 ML IV ONE (02:10)
[2023-06-19] MEDS ORDERED: ASPIRIN ENTERIC COATED 81 MG TAB PO ONE (03:55)
[2023-06-19] MEDS ORDERED: Doxycycline Hyclate 100 MG in SODIUM CHLORIDE 0.9% 250 ML IV SCH (04:55)
[2023-06-19] MEDS ORDERED: Ceftriaxone Sodium 1 GM in SYRINGE INFUSION 10 ML IV ONE (04:55)
[2023-06-19] MEDS ORDERED: ACETAMINOPHEN 325 MG TAB PO ONE ×2 (05:00→21:55)
[2023-06-19 05:34] LABS: POTASSIUM 4.3 mmol/L (3.4-5.1); TOTAL PROTEIN 6.7 gm/dL (6.0-8.0)
[2023-06-19] MEDS ORDERED: Pantoprazole Sodium 40 MG VIAL IV SCH (06:00)
[2023-06-19 06:25] LABS: HEMATOCRIT 42.3 % (42.0-52.0); MEAN CORPUSCULAR HGB 28.4 pg (27.0-31.0); MEAN CORPUSCULAR HGB CONC 31.2 g/dl (33.0-37.0); MEAN PLATELET VOLUME 11.4 fl (9.6-12.3); PLATELET COUNT AUTOMATED 258 10*3/uL (130-400); RED BLOOD COUNT 4.65 10*6/uL (4.50-5.90); RED CELL DISTRI WIDTH 13.2 % (0-14.5); WHITE BLOOD COUNT 23.6 10*3/uL (4.8-10.8)
[2023-06-19 07:20] LABS: MANUAL DIFF REFLEX YES
[2023-06-19 09:06] LABS: TOTAL CELLS COUNTED 100 #CELLS
[2023-06-19 09:07] LABS: BURR CELLS FEW; PLATELET SUFFICIENCY NORMAL (NORMAL)
[2023-06-19] MEDS ORDERED: REMDESIVIR 200 MG in SODIUM CHLORIDE 0.9% 210 ML IV ONE (09:10)
[2023-06-19] MEDS ORDERED: Clopidogrel Hydrogen Sulfate 75 MG TAB PO SCH (10:00)
[2023-06-19] MEDS ORDERED: Metoprolol Tartrate 100 MG TAB PO SCH (10:00)
[2023-06-19] MEDS ORDERED: Rivastigmine Tartrate 3 MG CAP PO SCH (10:00)
[2023-06-19] MEDS ORDERED: DOXAZOSIN MESYLATE 4 MG TAB PO SCH (10:00)
[2023-06-19] MEDS ORDERED: MORPHINE Sulfate 2 MG/ML SYR IV ONE (10:45)
[2023-06-19] MEDS ORDERED: MORPHINE Sulfate 2 MG/ML SYR IV PRN (10:45)
[2023-06-19] MEDS ORDERED: Meropenem 500 MG IV SCH (10:45)
[2023-06-19] MEDS ORDERED: Acetaminophen/Hydrocodone 5 MG/325 MG TABLET PO PRN (10:50)
[2023-06-19] MEDS ORDERED: SODIUM CHLORIDE 0.9% 250 ML BAG IV ONE (11:02)
[2023-06-19] MEDS ORDERED: Doxycycline Hyclate 100 MG VIAL IV ONE (11:02)
[2023-06-19] MEDS ORDERED: Menthol/Zinc Oxide 4 GM THIN T PRN (11:20)
[2023-06-19] MEDS ORDERED: VANCOMYCIN/WATER FOR INJ (PEG) 300 ML IV SCH (12:00)
[2023-06-19] MEDS ORDERED: Clindamycin Phosphate 50 ML IV SCH ×2 (14:00)
[2023-06-19] MEDS ORDERED: Meropenem 1 GM in SODIUM CHLORIDE 0.9% 100 ML IV SCH (15:00)
[2023-06-19] MEDS ORDERED: Ceftriaxone Sodium 2 GM in SYRINGE INFUSION 20 ML IV SCH (17:00)
[2023-06-19] MEDS ORDERED: MUPIROCIN 15 GM TUBE T SCH (18:00)
[2023-06-19] MEDS ORDERED: Mirtazapine 15 MG TAB PO SCH (22:00)
[2023-06-19] MEDS ORDERED: ATORVASTATIN CALCIUM 20 MG TAB PO SCH (22:00)
[2023-06-19] MEDS ORDERED: CLOTRIMAZOLE 15 GM TUBE T SCH (22:00)
[2023-06-19] MEDS ORDERED: Menthol/Zinc Oxide 4 GM THIN T SCH (22:00)
[2023-06-20] VITALS (7 sets, daily range): BP systolic 104–129; BP diastolic 36–65
[2023-06-20] MEDS ORDERED: HEEL PROTECTOR DEVICE ONE (02:17)
[2023-06-20] MEDS ORDERED: FOAM BANDAGE 5X5 T ONE ×2 (02:17)
[2023-06-20] MEDS ORDERED: FOAM BANDAGE 6X6 T ONE (02:17)
[2023-06-20] MEDS ORDERED: LEPTOSPERMUM HONEY 0.5 OZ TUBE T ONE (02:17)
[2023-06-20] MEDS ORDERED: CHAIR CUSHION DEVICE ONE (02:17)
[2023-06-20 06:27] LABS: POTASSIUM 3.6 mmol/L (3.4-5.1); TOTAL PROTEIN 5.4 gm/dL (6.0-8.0)
[2023-06-20] MEDS ORDERED: REMDESIVIR 100 MG in SODIUM CHLORIDE 0.9% 230 ML IV SCH (10:00)
[2023-06-20] MEDS ORDERED: SODIUM CHLORIDE 0.9% 1,000 ML IV ONE (21:35)
[2023-06-20] MEDS ORDERED: Meropenem 500 MG in SODIUM CHLORIDE 0.9% 50 ML IV SCH (22:00)
[2023-06-21 01:41] VITALS: BP 114/83
[2023-06-21 06:14] LABS: BASO % 0.2 % (0.0-1.0); EOS # 0.2 10*3/uL (0.0-0.4); EOS % 1.9 % (1.0-4.0); HEMATOCRIT 33.7 % (42.0-52.0); LYMPH # 0.6 10*3/uL (1.3-4.4); LYMPH % 6.1 % (27.0-41.0); MEAN CELL VOLUME 88.7 fl (80.0-94.0); MEAN CORPUSCULAR HGB 28.2 pg (27.0-31.0); MEAN CORPUSCULAR HGB CONC 31.8 g/dl (33.0-37.0); MEAN PLATELET VOLUME 11.4 fl (9.6-12.3); MONO # 0.7 10*3/uL (0.1-1.0); MONO % 7.6 % (3.0-9.0); NEUT % 83.1 % (47.0-73.0); PLATELET COUNT AUTOMATED 142 10*3/uL (130-400); RED CELL DISTRI WIDTH 13.3 % (0-14.5); WHITE BLOOD COUNT 9.6 10*3/uL (4.8-10.8)
[2023-06-21 07:28] LABS: POTASSIUM 3.4 mmol/L (3.4-5.1); TOTAL PROTEIN 5.2 gm/dL (6.0-8.0)
[2023-06-21 08:00] VITALS: BP 120/65
[2023-06-21] MEDS ORDERED: Dexamethasone Sodium Phospha 4 MG/ML VIAL IV SCH (10:40)
[2023-06-21] MEDS ORDERED: Melatonin 5 MG TABLET PO PRN (10:50)
[2023-06-21 12:00] VITALS: BP 129/68
[2023-06-21 16:00] VITALS: BP 130/70
[2023-06-21] MEDS ORDERED: METOPROLOL SUCCINATE XR 100 MG TAB PO SCH (18:00)
[2023-06-21 20:00] VITALS: BP 129/47
[2023-06-21] MEDS ORDERED: hydrALAZINE hydrochloride 10 MG TAB PO SCH (22:00)
[2023-06-21] MEDS ORDERED: Ceftriaxone Sodium 2 GM in SYRINGE INFUSION 20 ML IV SCH (23:00)
[2023-06-22] VITALS: BP 145/53
[2023-06-22 06:20] LABS: POTASSIUM 3.3 mmol/L (3.4-5.1); TOTAL PROTEIN 5.3 gm/dL (6.0-8.0)
[2023-06-22 06:52] LABS: BASO % 0.2 % (0.0-1.0); EOS # 0.1 10*3/uL (0.0-0.4); EOS % 2.4 % (1.0-4.0); HEMATOCRIT 36.9 % (42.0-52.0); LYMPH # 0.6 10*3/uL (1.3-4.4); LYMPH % 9.6 % (27.0-41.0); MEAN CELL VOLUME 88.3 fl (80.0-94.0); MEAN CORPUSCULAR HGB 28.2 pg (27.0-31.0); MONO # 0.7 10*3/uL (0.1-1.0); MONO % 11.3 % (3.0-9.0); NEUT # 4.4 10*3/uL (2.3-7.9); NEUT % 75.3 % (47.0-73.0); PLATELET COUNT AUTOMATED 126 10*3/uL (130-400); RED BLOOD COUNT 4.18 10*6/uL (4.50-5.90); RED CELL DISTRI WIDTH 13.5 % (0-14.5); WHITE BLOOD COUNT 5.8 10*3/uL (4.8-10.8)
[2023-06-22 08:00] VITALS: BP 142/71
[2023-06-22] MEDS ORDERED: POTASSIUM CHLORIDE 20 MEQ TAB PO ONE (08:10)
[2023-06-22] MEDS ORDERED: ISOSORBIDE MONONITRATE 30 MG TAB PO SCH (10:00)
[2023-06-22] MEDS ORDERED: SODIUM BICARBONATE 150 MEQ in DEXTROSE 5% 1,000 ML IV ONE (11:30)
[2023-06-22 12:00] VITALS: BP 153/62
[2023-06-22 16:00] VITALS: BP 137/78
[2023-06-22 20:00] VITALS: BP 118/69
[2023-06-23] VITALS: BP 131/56
[2023-06-23 06:40] LABS: BASO % 0.3 % (0.0-1.0); EOS # 0.2 10*3/uL (0.0-0.4); EOS % 3.7 % (1.0-4.0); HEMATOCRIT 37.4 % (42.0-52.0); LYMPH # 0.9 10*3/uL (1.3-4.4); LYMPH % 14.4 % (27.0-41.0); MEAN CELL VOLUME 86.8 fl (80.0-94.0); MEAN CORPUSCULAR HGB 28.3 pg (27.0-31.0); MEAN CORPUSCULAR HGB CONC 32.6 g/dl (33.0-37.0); MONO # 0.9 10*3/uL (0.1-1.0); MONO % 14.4 % (3.0-9.0); NEUT # 3.9 10*3/uL (2.3-7.9); PLATELET COUNT AUTOMATED 143 10*3/uL (130-400); RED BLOOD COUNT 4.31 10*6/uL (4.50-5.90); RED CELL DISTRI WIDTH 13.5 % (0-14.5); WHITE BLOOD COUNT 5.9 10*3/uL (4.8-10.8)
[2023-06-23 07:00] LABS: BUN 31 mg/dl (9-23); CHLORIDE 108 mmol/L (98-107); POTASSIUM 3.3 mmol/L (3.4-5.1)
[2023-06-23] MEDS ORDERED: MAGNESIUM SULFATE 50 ML IV ONE (07:15)
[2023-06-23 08:00] VITALS: BP 151/67
[2023-06-23] MEDS ORDERED: Enoxaparin Sodium 40 MG/0.4 ML SYR SC SCH (10:00)
[2023-06-23 12:00] VITALS: BP 126/53
[2023-06-23] MEDS ORDERED: POTASSIUM CHLORIDE 20 MEQ TAB PO ONE (13:00)
[2023-06-23 16:00] VITALS: BP 134/50
[2023-06-23] MEDS ORDERED: FOAM BANDAGE 1 EACH BANDAGE T ONE (17:13)
[2023-06-23] MEDS ORDERED: FOAM BANDAGE 4X4 T ONE (17:13)
[2023-06-23 20:00] VITALS: BP 125/52; BP 154/84
[2023-06-24] VITALS: BP 134/47
[2023-06-24 05:55] LABS: BUN 23 mg/dl (9-23); CHLORIDE 110 mmol/L (98-107); POTASSIUM 3.2 mmol/L (3.4-5.1)
[2023-06-24 06:11] LABS: BASO % 0.5 % (0.0-1.0); EOS # 0.3 10*3/uL (0.0-0.4); EOS % 4.9 % (1.0-4.0); HEMATOCRIT 35.5 % (42.0-52.0); LYMPH # 1.2 10*3/uL (1.3-4.4); LYMPH % 19.7 % (27.0-41.0); MEAN CELL VOLUME 86.8 fl (80.0-94.0); MEAN CORPUSCULAR HGB 27.9 pg (27.0-31.0); MEAN CORPUSCULAR HGB CONC 32.1 g/dl (33.0-37.0); MEAN PLATELET VOLUME 12.2 fl (9.6-12.3); MONO # 0.8 10*3/uL (0.1-1.0); NEUT # 3.7 10*3/uL (2.3-7.9); NEUT % 60.6 % (47.0-73.0); PLATELET COUNT AUTOMATED 145 10*3/uL (130-400); RED BLOOD COUNT 4.09 10*6/uL (4.50-5.90); RED CELL DISTRI WIDTH 13.5 % (0-14.5); WHITE BLOOD COUNT 6.1 10*3/uL (4.8-10.8)
[2023-06-24 08:00] VITALS: BP 154/47
[2023-06-24] MEDS ORDERED: MAGNESIUM SULFATE 50 ML IV ONE (09:00)
[2023-06-24] MEDS ORDERED: POTASSIUM CHLO20 ME3 PO (10:14)
[2023-06-24] MEDS ORDERED: APRESOLINE10 MG PO (10:15)
[2023-06-24] MEDS ORDERED: IMDUR SA30 MG PO (10:15)
[2023-06-24] MEDS ORDERED: LEVOFLOXACIN750 M2 PO (10:18)
[2023-06-24 12:00] VITALS: BP 108/53
[2023-06-24] MEDS ORDERED: POTASSIUM CHLORIDE 20 MEQ TAB PO ONE (12:00)
[2023-06-24] MEDS ORDERED: FOAM BANDAGE 4X4 T ONE (15:56)
== END 2023-06-24 15:30 | disposition home health service (06) | DRG 698 ==
LOC: ED 15:05 → EDHOLD 20:15 → 4E 20:15
PROVIDERS: Internal Medicine; Nurse Practitioner Family; Student in an Organized Health Care Education/Training Program; ADMIT Internal Medicine; ATTEND Internal Medicine
PROC: XW033E5 Introduction of Remdesivir Anti-infective into Peripheral Vein, Percutaneous Approach, New Technology Group 5 (ICD-10-PCS; principal; 2023-06-20)
DX: T83.511A Infection and inflammatory reaction due to indwelling urethral catheter, initial encounter (principal); A41.50 Gram-negative sepsis, unspecified; E43 Unspecified severe protein-calorie malnutrition; G93.41 Metabolic encephalopathy; J15.69 Pneumonia due to other Gram-negative bacteria; I21.A1 Myocardial infarction type 2; U07.1 COVID-19; J12.82 Pneumonia due to coronavirus disease 2019; R65.20 Severe sepsis without septic shock; N13.6 Pyonephrosis; E87.1 Hypo-osmolality and hyponatremia; N20.1 Calculus of ureter; N17.9 Acute kidney failure, unspecified; I50.32 Chronic diastolic (congestive) heart failure; I13.0 Hypertensive heart and chronic kidney disease with heart failure and stage 1 through stage 4 chronic kidney disease, or unspecified chronic kidney disease; Y84.6 Urinary catheterization as the cause of abnormal reaction of the patient, or of later complication, without mention of misadventure at the time of the procedure; B96.20 Unspecified Escherichia coli [E. coli] as the cause of diseases classified elsewhere; E83.42 Hypomagnesemia; Z66 Do not resuscitate; N40.1 Benign prostatic hyperplasia with lower urinary tract symptoms; E87.6 Hypokalemia; R33.8 Other retention of urine; I25.10 Atherosclerotic heart disease of native coronary artery without angina pectoris; L89.101 Pressure ulcer of unspecified part of back, stage 1; L89.151 Pressure ulcer of sacral region, stage 1; L89.41 Pressure ulcer of contiguous site of back, buttock and hip, stage 1; L89.891 Pressure ulcer of other site, stage 1; L89.221 Pressure ulcer of left hip, stage 1; N18.30 Chronic kidney disease, stage 3 unspecified; L89.316 Pressure-induced deep tissue damage of right buttock; L89.896 Pressure-induced deep tissue damage of other site; I73.9 Peripheral vascular disease, unspecified; K80.20 Calculus of gallbladder without cholecystitis without obstruction; L89.626 Pressure-induced deep tissue damage of left heel; E78.2 Mixed hyperlipidemia; R73.9 Hyperglycemia, unspecified; Y92.89 Other specified places as the place of occurrence of the external cause; Z82.49 Family history of ischemic heart disease and other diseases of the circulatory system; Z80.3 Family history of malignant neoplasm of breast; Z79.899 Other long term (current) drug therapy; Z80.0 Family history of malignant neoplasm of digestive organs; Z51.5 Encounter for palliative care; Z95.1 Presence of aortocoronary bypass graft; Z90.49 Acquired absence of other specified parts of digestive tract; Z68.23 Body mass index [BMI] 23.0-23.9, adult

== ENCOUNTER 2023-06-29 17:21 | Emergency (ER) | payer OTHER ==
[~2023-06-29] VITALS: Ht 182.8 cm; Wt 77.1 kg
[~2023-06-29 17:21] MED LIST changes: +APRESOLINE10 MG PO; +Clopidogrel75 MG PO; +HYDR25T PO; +IMDUR SA30 MG PO; +LEVOFLOXACIN750 M2 PO; +LOPRESSOR100 M1 PO; +MIRTAZAPINE7.5 MG PO; +POTASSIUM CHLO20 ME3 PO; +RIVASTIGMINE TAR3 M1 PO
[2023-06-29 17:24] VITALS: BP 114/51
[2023-07-01] MEDS ORDERED: APRESOLINE10 MG PO (17:30)
[2023-07-01] MEDS ORDERED: ASPIRIN ADULT L81 M1 PO (17:32)
[2023-07-01] MEDS ORDERED: VITAMIN D310 MC3 PO (17:34)
[2023-07-01] MEDS ORDERED: RIVASTIGMINE T1.5 M1 PO (17:36)
[2023-07-01] MEDS ORDERED: ROSUVASTATIN CA20 MG PO (17:36)
[2023-07-01] MEDS ORDERED: FISH OIL 1,0001 EAC7 PO (17:38)
== END 2023-06-29 18:50 | disposition home or self-care (01) ==
LOC: ED 17:21
DX: T83.091A Other mechanical complication of indwelling urethral catheter, initial encounter (principal); I25.10 Atherosclerotic heart disease of native coronary artery without angina pectoris; I10 Essential (primary) hypertension; F32.A Depression, unspecified; K21.9 Gastro-esophageal reflux disease without esophagitis; M10.9 Gout, unspecified; I48.91 Unspecified atrial fibrillation; Z98.890 Other specified postprocedural states; Y82.9 Unspecified medical devices associated with adverse incidents; Y92.009 Unspecified place in unspecified non-institutional (private) residence as the place of occurrence of the external cause

== ENCOUNTER 2023-08-03 05:18 | Emergency (ER) | payer OTHER ==
[~2023-08-03 05:18] MED LIST changes: +ASPIRIN ADULT L81 M1 PO; +FISH OIL 1,0001 EAC7 PO; +LOPERAMIDE HCL2 MG PO; +Lopressor25 MG PO; +ONDANSETRON HYDR4 M1 PO; +REMERON15 M2 PO; +RIVASTIGMINE T1.5 M1 PO; +ROSUVASTATIN CA20 MG PO; +TYLENOL325 M1 PO; +VITAMIN D310 MC3 PO; +XARE15TA PO
[2023-08-03 05:19] VITALS: BP 151/69
== END 2023-08-03 08:17 ==
LOC: ED 05:18
DX: S09.8XXA Other specified injuries of head, initial encounter (principal); I25.10 Atherosclerotic heart disease of native coronary artery without angina pectoris; E78.5 Hyperlipidemia, unspecified; N13.30 Unspecified hydronephrosis; N40.0 Benign prostatic hyperplasia without lower urinary tract symptoms; E78.00 Pure hypercholesterolemia, unspecified; I12.9 Hypertensive chronic kidney disease with stage 1 through stage 4 chronic kidney disease, or unspecified chronic kidney disease; N18.30 Chronic kidney disease, stage 3 unspecified; F32.A Depression, unspecified; K21.9 Gastro-esophageal reflux disease without esophagitis; M10.9 Gout, unspecified; I48.91 Unspecified atrial fibrillation; Z98.890 Other specified postprocedural states; W06.XXXA Fall from bed, initial encounter; Y93.89 Activity, other specified; Y92.129 Unspecified place in nursing home as the place of occurrence of the external cause; Y99.8 Other external cause status